=== PATIENT | female | born 1960 | race Hispanic/Latino ===

== ENCOUNTER 2023-02-08 21:09 | Emergency (ER) | payer SELFPAY ==
[~2023-02-08] VITALS: Ht 139.7 cm; Wt 49.0 kg
[~2023-02-08 21:09] MED LIST: ADVIL OTC PO; ALLEGRA-D12 HOUR OR; AUGMENTIN875 MG PO; DITROPAN PO; LORTAB5 PO; NEXIUM40 M1 PO; RANITIDINE150 M1 PO
[2023-02-08] MEDS ORDERED: EQ ALLERGY REL180 MG PO (22:33)
[2023-02-08] MEDS ORDERED: OMEPRAZOLE DR40 MG PO (22:34)
[2023-02-08] MEDS ORDERED: LOSARTAN/HCT1 TA1 PO (22:35)
[2023-02-08] MEDS ORDERED: HYDROXYZ HCL25 MG PO (22:36)
[2023-02-08] MEDS ORDERED: ATORVASTATIN CA20 MG PO (22:36)
[2023-02-08] MEDS ORDERED: PAROXETINE10 MG PO (22:37)
[2023-02-08] MEDS ORDERED: CELEBREX100 M1 PO (22:37)
[2023-02-08 23:11] LABS: BASO% 0.2 % (0-3); EOS% 0.8 % (0-8); HEMOGLOBIN 12.7 g/dl (12.0-16.0); IMMATURE GRANULOCYTES 0.2 % (0.0-5.0); LYMPH% 38.8 % (15-41); MEAN CELL VOLUME 88.4 fL CALC (80.0-100.0); MEAN CORPUSCULAR HGB 29.5 pG CALC (26.0-32.0); MEAN CORPUSCULAR HGB CONC 33.4 g/dL CAL (32.0-36.0); MONO% 7.9 % (2-13); NEUT# 2.72 thou/uL (2.00-7.15); NEUT% 52.1 % (42-76); RED BLOOD COUNT 4.3 mill/uL (4.20-5.60); RED CELL DISTRI WIDTH 12.7 % (11.5-15.5)
[2023-02-08 23:27] LABS: ALKALINE PHOSPHATASE 66 u/l (38-126); AMYLASE 66 u/l (30-110); BUN 20 mg/dL (8-23); BUN/CREATININE RATIO 24 (12-20 (CALC)); CARBON DIOXIDE 23 mmol/l (22-30); CHLORIDE 101 mmol/l (95-108); CREATININE 0.8 mg/dL (0.5-1.0); GFR FOR AFR.AMER. > 60 ML/MIN (>=60 (CALC)); GFR OTHER RACES > 60 ML/MIN (>=60 (CALC)); LIPASE 47 u/l (23-300); POTASSIUM 3.7 mmol/l (3.5-5.1); SGOT/AST 32 u/l (9-36); TOTAL PROTEIN 8.3 g/dL (6.3-8.2)
[2023-02-08 23:35] LABS: ANION GAP 17 (6-22 (CALC)); BILIRUBIN, TOTAL 1.2 mg/dL (0.02-1.3); SODIUM 137 mmol/l (137-146)
[2023-02-09 02:00] VITALS: BP 130/55
[2023-02-09] MEDS ORDERED: ONDANSETRON4 MG PO (02:15)
[2023-02-09] MEDS ORDERED: LOMOTIL2.5 MG PO (02:15)
[2023-02-09 02:58] VITALS: BP 130/55
== END 2023-02-09 02:58 | disposition home or self-care (01) | DRG 392 ==
LOC: ED 21:09
PROVIDERS: Emergency Medicine
DX: K52.9 Noninfective gastroenteritis and colitis, unspecified (principal); Z20.822 Contact with and (suspected) exposure to COVID-19
CPT/HCPCS: Q9967